=== PATIENT | male | born 1935 ===

== ENCOUNTER 2020-03-15 14:16 | Inpatient (IN) | payer MEDICARE ==
[~2020-03-15] VITALS: Ht 177.8 cm; Wt 68.1 kg
[2020-03-15] MEDS ORDERED: ASPIRIN81 M1 PO (15:35)
[2020-03-15] MEDS ORDERED: METOPROLOL25 MG PO (15:36)
[2020-03-15] MEDS ORDERED: CLOPIDOGREL75 MG PO (15:36)
[2020-03-15] MEDS ORDERED: DEPAKOTE500 MG PO (15:46)
[2020-03-15] MEDS ORDERED: HYDROXYZINE PAM25 M1 PO (15:47)
[2020-03-15] MEDS ORDERED: QUETIAPINE FUMA25 M1 PO (15:47)
[2020-03-15] MEDS ORDERED: MIRALAX17 GM PO (15:48)
[2020-03-15] MEDS ORDERED: PRAVACHOL20 MG PO (15:48)
[2020-03-15 20:15] VITALS: BP 137/54
--- NOTE | 2020-03-15 20:15 | NUR ---
CHAYO MOTA a 85 year old M admitted via ambulance from the ADMITTING as a emergency 72 hr. hold admission. Arrived on unit at 2014. ALLERGIES: DOXCYCLINE. Vital signs are: [id number] 137/54. The client signed the following forms with stated understanding: Authorization For The Release of Medical Information, Clothing List, Consent to Voluntary Admission and Hospitalization, Consent and Release Forms/Receipt of Rights, Acknowledgement of Advance Directive Information, Behavioral Health Consent Form, and Informed Consent of Medications. Admitted under the services of Dr. OSMANY CORTEZ,[facility]. A search was conducted and hazardous articles were removed. Client was oriented to the unit. PT ALERT TO SELF, PLACE AND YEAR. CALM AND COOPERATIVE WITH ASSESSMENT. PT DOES ADMIT TO HAVING AUDITORY HALLUCINATIONS BUT IS UNABLE TO DESCRIBE. HE IS PREOCCUPIED WITH PEOPLE ACCUSING HIM OF BEING A PEDOPHILE AND THAT THE GAS AND OIL IS STEALING FROM HIM. DENIES S/HI. KAYE MILNER
--- NOTE | 2020-03-15 21:55 | NUR ---
DR. SIFUENTES ON UNIT TO ASSESS PATIENT. NOTIFIED DR. SIFUENTES PT C/O IRRITATION ON LEFT UPPER OUTER GUM AREA. NO OPEN AREA NOTED, NNO.
[2020-03-15 22:44] LABS: BILIRUBIN Negative (Negative); BLOOD Negative (Negative); CLARITY Clear (Clear); COLOR Yellow (Yellow); GLUCOSE Negative (Negative); KETONE Trace (Negative); LEUKO ESTERASE Negative (Negative); NITRITE Negative (Negative); PH 7.5 (4.5-8.0)
[2020-03-15 23:03] LABS: BACTERIA TRACE; RBC 0-2 rbc/hpf (0-2); WBC 0-2 wbc/hpf (0-5); YEAST TRACE
--- NOTE | 2020-03-16 01:17 | NUR ---
PT REPORTED HE HAD A BAG OF CLOTHING WITH HIM FROM HOME. PT DID NOT HAVE ANY BELONGINGS WITH HIM OTHER THAN WHAT HE WAS WEARING UPON ADMISSION. CONTACTED [facility] AND SPOKE WITH SOLEDAD EISENBERG, SHE REPORTS NO BELONGINGS WERE LEFT IN THE ER. SOLEDAD EISENBERG, REPORTS THAT SOMEONE FROM THIS FACILITY CAN CONTACT THE CHARGE NURSE IN THE MORNING TO REACH OUT TO THE AMBULANCE TO SEE IF ANY BELONGINGS WERE LEFT IN THE AMBULANCE. THIS NURSE WILL NOTIFY MORNING STAFF AND QUALITY CONTROL TECH.
--- NOTE | 2020-03-16 05:43 | NUR ---
SLEPT PAST 2315 WITH BRIEF AWAKENINGS.
[2020-03-16 07:26] VITALS: BP 135/68
[2020-03-16 07:28] LABS: BASO % 0.2 % (0.0-1.0); EOS # 0.1 10*3/uL (0.0-0.4); EOS % 2.1 % (1.0-4.0); HEMATOCRIT 46.4 % (42.0-52.0); LYMPH # 1.3 10*3/uL (1.3-4.4); LYMPH % 27.3 % (27.0-41.0); MEAN CELL VOLUME 98.3 fl (80.0-94.0); MEAN CORPUSCULAR HGB 32.6 pg (27.0-31.0); MEAN CORPUSCULAR HGB CONC 33.2 g/dl (33.0-37.0); MEAN PLATELET VOLUME 9.8 fl (9.6-12.3); MONO # 0.6 10*3/uL (0.1-1.0); MONO % 12.2 % (3.0-9.0); NEUT # 2.7 10*3/uL (2.3-7.9); NEUT % 57.8 % (47.0-73.0); PLATELET COUNT AUTOMATED 214 10*3/uL (130-400); RED BLOOD COUNT 4.72 10*6/uL (4.50-5.90); RED CELL DISTRI WIDTH 12.5 % (0-14.5); WHITE BLOOD COUNT 4.7 10*3/uL (4.8-10.8)
[2020-03-16 07:42] LABS: ALBUMIN 2.9 gm/dl (3.1-4.5); BUN 14 mg/dl (7-24); CHLORIDE 102 mmol/L (98-107); CHOLESTEROL 145 mg/dL (<200); CREATININE 0.72 mg/dL (0.70-1.30); POTASSIUM 4.3 mmol/L (3.5-5.1); SGOT/AST 27 IU/L (3-35); SGPT/ALT 37 U/L (12-78); SODIUM 136 mmol/L (136-145); TRIGLYCERIDES 88 mg/dl (<150); VLDL CHOLESTEROL 18 mg/dL (6-40)
[2020-03-16 07:52] LABS: ALKALINE PHOSPHATASE 75 U/L (45-117); HDL CHOLESTEROL 50 mg/dl (40-60); LDL CHOLESTEROL 77 mg/dL (9-159); TOTAL PROTEIN 6.6 gm/dL (6.4-8.2)
--- NOTE | 2020-03-16 08:18 | NUR ---
Nursing screen received and chart review completed. 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 At this time no occupational therapy indicated. If patient should have a decline in ADLs then refer to OT for further assessment. Thank you. Zoe Wood OTR/Blayne
--- NOTE | 2020-03-16 08:24 | NUR ---
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 Please consult PT if pt has a decline in functional status below baseline, thank you. Madhuri Brady PT
--- NOTE | 2020-03-16 08:30 | NUR ---
Treatment Plan meeting was held this a.m. with Dr. Carbajal, RN, AT, TURBOGENERATOR OPERATOR-S and Manager Dialysis in attendance. Plan for discharge Next Week. Pt. will at this point return home at discharge.
[2020-03-16 08:47] LABS: VITAMIN D, 25-HYDROXY 31.6 ng/mL (30-100)
--- NOTE | 2020-03-16 10:40 | NUR ---
SPEECH PATHOLOGY Patient seen this am for bedside swallowing evaluation in U after referral received due to coughing with meals. He was admitted for deppressive episode with psychotic features e.g. paranoia. Staff reported that he consumed all of his breakfast with little difficulty and some mild throat clearing after meal was done. Patient reported that he did not have water with his breakfast which he said helps him to swallow better. Patient also reported that his anxiety makes him have trouble swallowing sometimes because it "makes my throat tight." He was oriented X3 and followed commands well. Oral skills all withint functional limits. Clinician observed patient consume fuad crackers, mandarin oranges, and chocolate milk with no coughing/throat clearing observed and no other s/s of aspiration. He displayed a somewhat fast rate of intake. Clinician recommended that he consume meals with a slower rate and alternate bites of food with sips of liquid to maximize safety dural oral intake. No therapy indicated at this time. Lucas Yung MA CCC-DRAMATIC TEACHER
--- NOTE | 2020-03-16 11:42 | NUR ---
ASSESSMENT AND AM GROUP PT PARTICIPATED IN ASSESSENT. PT REPORTED THAT HE IS VERY OVERWHELMED BY SEVERAL FACTORS, COVID, HIS HEALTH, AND PAYING BILLS. 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 PT WAS INVITED TO ATTEND MORNING GROUP THERAPY AND DID SO REQUESTING A CUP OF COFFEE AND READING THE NEWSPAPER. PT STATED DURING ASSESSMENT, "THE WORST THING IS NOW THAT I CAME HERE I HAVE TO GO TO A FPC!" PT WAS ASSURRED THAT WAS NOT THE CASE AND THAT THE PLAN WAS FOR HIM TO RETURN HOME. PT SHOWED MUCH RELIEF.
--- NOTE | 2020-03-16 12:23 | NUR ---
PRN MOM 30ML PO GIVEN AT THIS TIME PER PT REQUEST FOR C/O CONSTIPATION. WILL MONITOR FOR EFFECT.
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
--- NOTE | 2020-03-16 15:46 | NUR ---
P- GUARDED, RESERVED WITH RESPONSES PROVIDED TO STAFF, SOME PARANOIA NOTED I- ORIENTATION, MOOD AND BEHAVIORS ASSESSED. ASSESSED PT FOR SI/HI, INTENT OR PLAN. ASSESSED PT FOR S/S HALLUCINATIONS, PARANOIA AND/OR DELUSIONS. MEDICATIONS ADMINISTERED PER PHYSICIAN'S ORDERS. ASSISTANCE WITH ADL CARE PROVIDED NEEDED. ENCOURAGED PT TO ATTEND AND PARTICIPATE IN [facility] GROUPS AND ACTIVITIES. R- PT IS ALERT AND ORIENTED X3. RESPS EASY AND EVEN ON ROOM AIR. MOOD HAS BEEN STABLE THIS SHIFT, AFFECT APPROPRIATE. PT BECAME SLIGHTLY IRRITABLE AND DISPLAYED SOME MILD PARANOIA WHEN COVID SWAB WAS PERFORMED, PT STATES "I HAD THIS DONE ALREADY AND THEY TOLD ME I'D NEVER HAVE TO DO IT AGAIN. IT ALMOST KILLED ME". EDUCATION PROVIDED AND PT ALLOWED THIS RN TO COMPLETE COVID SWAB WITHOUT DIFFICULTY. OTHERWISE PT HAS BEEN CALM, PLEASANT AND COOPERATIVE. PT DENIES SI/HI, INTENT OR PLAN. PT DENIES HALLUCINATIONS, NO RESPONSE TO INTERNAL STIMULI NOTED. PT NOTED GUARDED/RESERVED WITH STAFF, PT NOT DIVULGING MUCH INFORMATION REGARDING PARANOID THOUGHTS WITH STAFF. PT HAS BEEN MEDICATION COMPLIANT WITHOUT DIFFICULTY. NO AGGRESSIVE BEHAVIORS NOTED. NO DISTRESS NOTED. P- PLAN TO CONTINUE CURRENT TREATMENT, CONTINUE TO MONITOR MOOD AND BEHAVIORS, PROVIDE APPROPRIATE REORIENTATION AND REDIRECTION NEEDED. CONTINUE TO ENCOURAGE MEDICATION COMPLIANCE WELL GROUP ATTENDANCE AND PARTICIPATION.
--- NOTE | 2020-03-16 15:49 | NUR ---
PM GROUP/FUN AND GAMES PT ATTENDED AFTERNOON GROUP THERAPY AND PARTICIPATED BY WORKING ON A JIGSAW PUZZLE. PT WAS FOCUSED AND ON TASK. PT WAS SOCIALABLE AND PLEASANT. PT EXPRESSED NO DELUSIONAL IDEATIONS WHILE IN GROUP.
--- NOTE | 2020-03-16 17:31 | NUR ---
MOM EFFECTIVE PER PT REPORT FOR LARGE BM.
--- NOTE | 2020-03-16 18:09 | NUR ---
PT C/O HAEADCHE, REQUESTED TYLENOL. PT MEDICATED WITH TYLENOL 650 MG PO PRN PER ORDERS. WILL CONTINUE TO MONITOR.
[2020-03-16 20:00] VITALS: BP 142/68
--- NOTE | 2020-03-16 23:17 | NUR ---
PT ALERT AND ORIENTED X3. MOOD STABLE. NO RESPONSE TO INTERNAL STIMULI, NO PARANOIA NOTED. CALM, COOPEARATIVE AND INTERACTIVE WITH PEERS. NO ADVERSE BEHAVIORS NOTED. NO COMPLAINT VOICED. MEDICATION COMPLAINT. NO S/S DISTRESS NOTED. Q15 MIN CHECKS MAINTAINED AND PRN.
--- NOTE | 2020-03-17 06:07 | NUR ---
SLEPT PAST 5 X2 BRIEF AWAKENINGS
--- NOTE | 2020-03-17 06:09 | NUR ---
SLEPT PAST 2245 WITH X2 BRIEF AWAKENINGS.
[2020-03-17 07:47] VITALS: BP 103/59
--- NOTE | 2020-03-17 08:30 | NUR ---
Treatment Plan meeting was held this a.m. with Dr. Carbajal via telephone, RN, AT, MYLES-S and Manager Environmental Health in attendance. Plan for discharge Next week. Pt. will return home at discharge at this point.
--- NOTE | 2020-03-17 11:36 | NUR ---
AM GROUP PT ATTENDED MORNING GROUP THERAPY AND PARTICIPATED IN ALL ACTIVITIES. PT WAS FOCUSED, ON TASK AND SOCIALABLE. PT EXPRESSED NO PARANOID DELUSIONS WHILE IN GROUP BUT DID DISCUSS SOME ANXIOUSNESS ABOUT PAYING HIS BILLS. PT WAS EASILY REDIRECTABLE.
--- NOTE | 2020-03-17 15:36 | NUR ---
PM GROUP/GRATITUDE PT ATTENDED AFTERNOON GROUP THERAPY AND PARTICIPATED IN ALL ACTIVITIES. PT WAS FOCUSED AND ON TASK. PT EXHIBITED NO ADVERSE BEHAVIORS WHILE IN GROUP.
--- NOTE | 2020-03-17 17:09 | NUR ---
PT IS ALERT, ORIENTED X 3. REPETITIVE. MOOD IS STABLE, AFFECT IS CONSTRICTED. PT IS PLEASANT, INTERACTING WITH STAFF AND PEERS. PT STATES "I'M ALWAYS ANXIOUS BUT THIS IS THE BEST I'VE FELT IN I DON'T KNOW HOW LONG". 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 PT EXPRESSES CONCERN OVER HIS BED ALARM BEING ON AT NIGHT WHICH PT STATES KEPT HIM UP FOR THREE NIGHTS. PT STATING HE DOES NOT WANT IT TO BE ON THIS EVENING. PT EDUCATED ON FALL PRECAUTIONS AND CALL DON'T FALL POLICY. PT CONTINUES TO ADAMANTLY REFUSE FOR HIS BED ALARM TO BE ON. PT STATES HE HAS NOT FALLEN IN A LONG TIME AND DOES NOT WANT IT. REQUEST COMMUNICATED TO CHARGE NURSE AND MHWs. WILL CONTINUE TO MONITOR Q15 MIN PER POLICY FOR SAFETY.
[2020-03-17 19:04] VITALS: BP 120/63
--- NOTE | 2020-03-17 23:23 | NUR ---
PT ALERT TO SELF, PLACE AND APPROX TIME. MOOD STABLE. NO RESPONSE TO INTERNAL STIMULI NOTED. PT REFUSES FOR BED ALARM TO BE IN USE. EDUCATED PT ON USE OF CALL LIGHT. PT VERBALIZED UNDERSTANDING AND AGREED TO USE CALL LIGHT. GAIT OBSERVED TO BE STEADY THIS EVENING. MEDICATION COMPLIANT AND EDUCATION PROVIDED. NO COMPLAINTS VOICED. Q 15 MIN CHECKS MAINTAINED AND PRN.
--- NOTE | 2020-03-18 06:05 | NUR ---
PT SLEPT PAST 2130. 24 HR chart check completed.
[2020-03-18 07:46] VITALS: BP 133/81
--- NOTE | 2020-03-18 10:00 | NUR ---
DR SEYMOUR ON UNIT TO ASSESS PT, UPDATE PROVIDED.
--- NOTE | 2020-03-18 11:30 | NUR ---
P: DEPRESSED MOOD, VOICING THOUGHT/DIFFICULTY LETTING GO OF RESPONSIBILITY AND CONTROL OF TAKING CARE OF FARM. 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 GRIEVING LOSS OF INDEPENDANCE AND AWARE OF THE NEED TO DOWN SIZE. I: ONE ON ONE FOR EMOTIONAL SUPPORT, REMINDERS OF ACTIVITIES OF DAILY LIVING, REDIECT AND ORIENT NEEDED. R: EFFECTIVE. PATIENT IS ALERT AND ORIENTED TO PERSON. PLACE. TIME AND SITUATION WITH INTERMITTANT CONFUSION. MEMORY GAPS NOTED. DENIES ANY HALLUCINATIONS, DELUSIONS, HI/SI OR PAIN. MOOD IS SLIGHT DEPRESSED, CALM DEMEANOR. INTERACTIVE WITH STAFF AND OTHER PATIENTS, SET UP FOR ACTIVITIES OF DAILY LIVING, CONTINENT OF BOWEL AND BLADDER. SET UP FOR MEALS, INTAKES ARE GOOD WITH ADEQUATE FLUID. MEDICATION COMPLAINT WITH EDUCATION PROVIDED. Q 15 MINUTE SAFETY CHECKS MAINTIANED. AMBULATORY WITH STEADY GAIT. SHOWERED THIS MORNING. P: CONTINUE TO MONITOR MOOD. PROVIDE ONE ON ONE FOR EMOTIONAL SUPPORT, REDIRECT NEEDED.
[2020-03-18 20:03] VITALS: BP 136/62
--- NOTE | 2020-03-18 22:30 | NUR ---
PLEASENTLY CONFUSED. PREOCCUPIED WITH HIS FACE MASK AND COVID. REASSURED CLIENT THAT ALL PATIENTS ARE COVID NEGATIVE AND HE HAS NOTHING TO FEAR. EMOTIONAL SUPPORT PROVIDED. ASKING ABOUT HIS MEDICARE AND WANTS IT CHECKED TO BE SURE NO ONE HAS "MESSED WITH IT". EMOTIONAL SUPPORT PROVIDED. WILL MONITOR FOR CHANGES IN MOOD/BEHAVIOR AND Q 15 MINS AND PRN FOR SAFETY
--- NOTE | 2020-03-19 06:43 | NUR ---
SLEPT 8 INTERUPTED HOURS. UP TWICE TO GET WATER. MOVES SELF WITHOUT DIFFICULTY
[2020-03-19 07:15] VITALS: BP 146/62
--- NOTE | 2020-03-19 10:48 | NUR ---
DR RUSSELL ON UNIT TO ASSESS PT, UPDATE PROVIDED.
--- NOTE | 2020-03-19 14:08 | NUR ---
PT ALERT TO PERSON, PLACE AND TIME WITH INTERMITTENT CONFUSION NOTED. PT MED COMPLIANT WITHOUT DIFFICULTY, MED EDUCATION PROVIDED. PT ANXIOUS AND PREOCCUPIED WITH MULTIPLE SUBJECTS STATING "I HAVE TO GET MY MEDICAID FIXED, I CAN'T CONTIUE TO BE HERE IF MY BILL ISN'T GOING TO BE PAID." STAFF PROVIDED EMOTIONAL SUPPORT AND 1:1 FOR PT TO VOICE FEELINGS AND PROVIDED REASSURANCE. PT THEN BECAME PREOCCUPIED STATING "I HAVE A HEART ISSUE, I WAS SUPPOSED TO HAVE A PROCEDURE DONE BUT I LEFT THE HOSPITAL BEOFRE THEY COULD DO IT, AND I JUST DON'T KNOW WHY BUT KNOW I AM WEAK." PT REPEATEDLY COMING TO DESK HAVING THIS CONVERSATION , NURSE PROVIDED EMOTIONAL SUPPORT AND 1:1 FOR PT TO VOICE FEELINGS AND PROVIDED REASSURANCE OF SAFETY. PT SAID "OK MAYBE I NEED TO GO LAY DOWN FOR A BIT." PT THEN RETURNED TO THE DESK STATING "I SHOULD HAVE TOLD THE DR I HAVEN'T MOVED MY BOWELS IN 4 DAYS." NURSE ADVISED PT THAT HE MOVED HIS BOWEL 2 DAYS AGO, PT STATED "OH I DID? MAYBE SO, I KNOW I HAD SOME OF THAT MEDICINE, WHAT IS IT CALLED MILK OF MAG? AND THEN I WENT A COUPLE DAYS AFTER." PT WALKED AWAY FROM THIS NURSE AND THEN RETURNED WITHIN MINUTES FOR SAME CONVERSATION. NURSE CONTINUED TO RE-ORIENT, PRESENT REALITY AND PROVIDED EMOTIONAL SUPPORT AND 1:1 FOR PT TO VOICE FEELINGS. PT STATED "MAYBE I SHOULD GO LAY DONW FOR A BIT AND SEE IF THAT HELPS." NO HALLUCINATIONS NOTED. PT DENIES ANY SUICIDAL THOUGHTS, VERBALLY CONTRACTS FOR SAFETY IF SUCH THOUGHTS ARISE. PT AMBULATORY THROUGHOUT UNIT, GAIT STEADY. PT CONTINENT OF BOWEL AND BLADDER. PT SHOWERED AND SHAVED THIS SHIFT. PLAN IS TO MONITOR PT BEHAVIORS ON Q15 MIN SAFETY CHECKS, ENCOURAGE MED COMPLIANCE AND PROVIDE MED EDUCATION, ENCOURAGE GROUP PARTICIPATION AND SOCIALIZATION, PROVIDE EMOTIONAL SUPPORT AND 1:1 FOR PT TO VOICE FEELINGS, PROVIDE POSITIVE REASSURANCE
[2020-03-19 19:25] VITALS: BP 149/53
--- NOTE | 2020-03-19 21:29 | NUR ---
INTERACTIVE WITH PEERS AND STAFF. PLAYING BLOCK GAME AND TRYING TO GET EVERYONE INVOLVED. STATES "I WAS A PISTOL TODAY BUT I AM BETTER TONIGHT) MEDICATION EDUCATION COMPLETED PRIOR TO MEDICATION PASS. WILL MONITOR FOR CHANGES IN BEHAVIOR/MOOD AND Q15 MINS AND PRN FOR SAFETY
--- NOTE | 2020-03-20 00:12 | NUR ---
MOM GIVEN AT CLIENT REQUEST. STATES HE HASN'T POOPED IN A LONG TIME. WHEN REDIRECTED HE SAID WELL WHEN I WENT IT WAS ONLY A SMALL AMOUNT. THEN STATES HE COULDN'T USE THE TOILET BECAUSE THEIR WAS DIARREHA ON IT FROM ROOMMATE AND IT STAYED THERE 3 DAYS. AGAIN REDIRECTED THAT HOUSEKEEPING WOULD HAVE CLEANED THE SEAT AND IF IT WAS DIRTY HE SHOULD HAVE NOTIFIED STAFF. ENCOURAGED CLIENT TO INCREASE HIS WALKING AND WATER INTAKE. EMOTIONAL SUPPORT PROVIDED
--- NOTE | 2020-03-20 05:47 | NUR ---
24 HR chart check completed.0 SLEPT ONLY 4 HOURS. IN AND OUT OF BATHROOM. FIXATED ON HAVING BOWEL MOVEMENTS
--- NOTE | 2020-03-20 06:25 | NUR ---
REMAINS BOWEL OBSESSED. UP IN BATHROOM MULTIPLE TIMES LAST NIGHT.
--- NOTE | 2020-03-20 06:51 | NUR ---
REMAINS PREOCCUPIED WITH BOWELS. THINKS HE HAS A BOWEL OBSTRUCTION AND IS DYING. ABD SOFT NONTENDER X4. BOWEL SOUND HYPOACTIVE X4. REINFORCED WATER, PRUNE JUICE AND INCREASED WALKING. UNABLE TO REDIRECT HE CONTINUALLY GOES BACK TO "I ONLY HAD A LITTLE STOOL ON THE 13 THAT'S OVER 2 DAYS AGO", EMOTIONAL SUPPORT PROVIDED. WILL CONTINUE TO MONITOR
[2020-03-20 08:00] VITALS: BP 121/65
--- NOTE | 2020-03-20 08:30 | NUR ---
Treatment Plan meeting was held this a.m. with Dr. Carbajal, LUTHER Boykin, RN, AT, HIGH RISK OB-S and Cma Or Lpn in attendance. Plan for discharge today if Pt. does sign for Voluntary Admission. [employer] will today.
[2020-03-20] MEDS ORDERED: RISPERIDONE1 MG PO (10:27)
[2020-03-20] MEDS ORDERED: HYDROXYZINE HCL25 MG PO (10:27)
[2020-03-20] MEDS ORDERED: RIVASTIGMINE TAR3 M1 PO (10:27)
[2020-03-20] MEDS ORDERED: RISPERIDONE0.5 MG PO (10:27)
[2020-03-20] MEDS ORDERED: MIRTAZAPINE15 M2 PO (10:27)
[2020-03-20] MEDS ORDERED: MEMANTINE HCL10 MG PO (10:31)
--- NOTE | 2020-03-20 11:42 | NUR ---
AM GROUP PT DID NOT ATTEND MORNING GROUP THERAPY. PT WAS IN DISCUSSIONS WITH HIS NURSE. PT IS SET TO BE DISCHARGED FROM THE UNIT SOMETIME TODAY.
--- NOTE | 2020-03-20 12:17 | NUR ---
Referral faxed to [facility] for Skilled Nurse.
--- NOTE | 2020-03-20 12:21 | NUR ---
Left Message for Pt. PCP office Dr. Rey Antunez to Make Follow up appointments.
--- NOTE | 2020-03-20 13:30 | NUR ---
Referral faxed to Dr. Howell Office. Physician will have to review before accepting. Referral Pending to [facility].
--- NOTE | 2020-03-20 14:49 | NUR ---
Received Call from [facility]. Pt. is accepted and added to Schedule for [place].
--- NOTE | 2020-03-20 14:59 | NUR ---
Dr. Howell has not accepted Pt. at this time. Will Follow with Office [place] for Follow up appointment. Pt. will follow with His PCP Dr. Antunez April 07 2020 which is earliest Appointment Available due to Physician Out of Town. [facility] is Ordered for Pt. and [facility] has accepted and will see Pt. stefani for Assessment and Admission. Advised Pt. that he is not to Drive until seen by his Primary Care Physician.
--- NOTE | 2020-03-20 15:21 | NUR ---
Orders Previously received via telephone from Dr. Carbajal entered into [employer]. See Order Screen for Home Health.
== END 2020-03-20 15:20 | disposition home health service (06) | DRG 885 ==
LOC: 3N 14:16
PROVIDERS: ADMIT Psychiatry & Neurology Psychiatry; ATTEND Psychiatry & Neurology Psychiatry
DX: F33.3 Major depressive disorder, recurrent, severe with psychotic symptoms (principal); F01.51 Vascular dementia, unspecified severity, with behavioral disturbance; F03.90 Unspecified dementia, unspecified severity, without behavioral disturbance, psychotic disturbance, mood disturbance, and anxiety; F41.9 Anxiety disorder, unspecified; I10 Essential (primary) hypertension; Z20.828 Contact with and (suspected) exposure to other viral communicable diseases; F17.210 Nicotine dependence, cigarettes, uncomplicated; Z88.1 Allergy status to other antibiotic agents; Z95.5 Presence of coronary angioplasty implant and graft; Z79.82 Long term (current) use of aspirin; Z79.899 Other long term (current) drug therapy